=== PATIENT | female | born 1965 | race Caucasian/White ===

== ENCOUNTER → 2017-01-06 | Outpatient (CLI) | payer BC | LOC: LAB 08:36 | PROVIDERS: ATTEND Internal Medicine Endocrinology, Diabetes & Metabolism | DX: E03.8 Other specified hypothyroidism (principal); E06.3 Autoimmune thyroiditis | CPT/HCPCS: 36415; 84443 ==

== ENCOUNTER → 2017-04-26 | Outpatient (CLI) | payer BC | LOC: LAB 07:51 | PROVIDERS: ATTEND Internal Medicine Endocrinology, Diabetes & Metabolism | DX: E03.8 Other specified hypothyroidism (principal); E06.3 Autoimmune thyroiditis | CPT/HCPCS: 36415; 84443 ==

== ENCOUNTER → 2017-05-26 | Outpatient (CLI) | payer BC | LOC: LAB 08:39 | PROVIDERS: ATTEND Pediatrics Pediatric Endocrinology | DX: E03.9 Hypothyroidism, unspecified (principal); E66.3 Overweight | CPT/HCPCS: 36415; 84255; 84439; 84481; 86376; 86800 ==

== ENCOUNTER → 2017-05-31 | Outpatient (CLI) | payer BC ==
--- NOTE | 2017-06-01 06:31 | DI ---
US SOFT TISSUE HEAD/NECK,05/31/2017 10:01 AM: Clinical History: Hypothyroidism. Previous Exam: None at this facility. Findings: Multiple grayscale and color Doppler sonographic images are obtained through the thyroid. The right thyroid lobe measures 3.5 x 1.9 x 0.9 cm in was diffusely heterogeneous. There was an echog enic nodule noted within the inferior pole of the right thyroid lobe measuring approximately 6 mm in diameter. The left thyroid lobe measures 3.6 x 0.9 x 1.0 cm without masses. There is diffuse heterogeneity. Impression: Single 6 mm hyperechoic nodule within the superior pole of the right lobe of the thyroid. Diffuse heterogeneity of the entire gland.
== END ==
LOC: US 09:57
PROVIDERS: ATTEND Pediatrics Pediatric Endocrinology
DX: E03.9 Hypothyroidism, unspecified (principal)
CPT/HCPCS: 76536